=== PATIENT | male | born 1990 | race Caucasian/White ===

== ENCOUNTER 2023-08-14 12:16 | Outpatient (CLI) | payer BC, SELFPAY ==
--- NOTE | ~2023-08-14 | MR_ITS ---
EXAMINATION: MR elbow LT wo/w con DATE: 08/14/2023 14:48 INDICATION: Neurofibromatosis syndrome TECHNIQUE: Magnetic resonance imaging (MRI) of the left elbow was performed without and with 12 mL Mu ltihance intravenous contrast. Sequences included axial and sagittal T1-weighted FSE; axial, sagittal and coronal T2-weighted FS FSE; coronal PD-weighted FSE; axial T1-weighted FS FSE and post contrast axial, sagittal and coronal T1-weighted FS FSE were also obtained. COMPARISON: None. FINDINGS: 4.6 x 3.6 x 1.2 cm T1 hypointense, T2 hyperintense and enhancing subcutaneous mass at the dorsal/radi al side of the proximal forearm. The mass abuts but does not appear to transgress the superficial fas savanna of the musculature with normal appearance to the underlying musculature. Are a few significant sm aller cutaneous lesions with similar enhancement and MR signal characteristics. This includes a 6 x 6 x 3 mm cutaneous lesion centered 2 cm anterior to the radial margin of the larger mass along the rad ial side of the proximal forearm and 6 mm and 5 mm cutaneous lesions on the posterior aspect of the d istal upper arm. The bone alignment is normal with normal marrow signal throughout. No fracture or pa thologic marrow replacing process. Joint space at the left elbow appear normal with no joint effusion . The medial and lateral collateral ligament complexes are normal. The triceps, biceps brachii, brach ialis tendons in the common flexor and extensor tendon wads are all normal. IMPRESSION: 1. 4.6 x 3.6 x 1.2 cm enhancing mass at the dorsal/radial aspect of the proximal forearm with 3 addit ional subcentimeter enhancing cutaneous nodules at the distal upper arm and proximal forearm. While i maging features are nonspecific, they would be consistent with neurofibromas with the multiplicity co nsistent with provided history of neurofibromatosis. Reviewed, dictated and finalized at location A. IMPRESSION: 1. 4.6 x 3.6 x 1.2 cm enhancing mass at the dorsal/radial aspect of the proxima l forearm with 3 additional subcentimeter enhancing cutaneous nodules at the di stal upper arm and proximal forearm. While imaging features are nonspecific, th ey would be consistent with neurofibromas with the multiplicity consistent with provided history of neurofibromatosis.
--- NOTE | ~2023-08-14 | MR_ITS ---
EXAMINATION: MR lumbar spine wo/w con DATE: 08/14/2023 14:48 INDICATION: Neurofibromatosis syndrome TECHNIQUE: Magnetic resonance imaging (MRI) of the lumbar spine was performed without intravenous con trast. Sequences included sagittal T2-weighted FSE, sagittal T2-weighted FS FSE, and sagittal and axi al T1-weighted FSE. Postcontrast sequences included axial T2-weighted FSE, sagittal T1-weighted FSE, and axial and sagittal T1-weighted FS FSE. COMPARISON: None FINDINGS: 2 mm retrolisthesis L4 on L5, one-2 mm anterolisthesis L5 on S1 and 1 mm retrolisthesis L2 on L3 and L3 on L4. Vertebral body heights are normal. Normal marrow signal. Disc heights are normal. Annular fissure at L5-S1 with minimal posterior disc protrusion. Remaining discs do not extend beyond the end plate margins. No central canal stenosis. The conus medullaris terminates at L2. There is normal sign al in the caudal spinal cord with no abnormally enhancing cord lesions. Multilevel lumbar facet osteo arthritis, moderate severity bilaterally at L1-L2, and the right at L3-L4, bilaterally at L4-L5 and m ild at the remaining lumbar facet joints. This contributes to mild neural foraminal stenosis bilatera lly at L1-L2, L2-L3 and on the left at L4-L5. Mild to moderate neural foraminal stenosis bilaterally at L3-L4 and on the right at L4-L5 and L5-S1. There is a 14.0 x 14.3 x 4.2 cm subcutaneous mass posterior to the lumbosacral spine from L2 through S3. The mass is T1 isointense to skeletal muscle and T2 hyperintense with avid enhancement. There are multiple additional subcentimeter enhancing subcutaneous nodules posterior to the more cephalad lumb ar spine and surrounding paraspinal musculature as well as a 4 mm enhancing nodule in the right poste rior paraspinal musculature at the level of L3 which are similarly T1 isointense and T2 hyperintense. While the MRI imaging features are nonspecific, they would be consistent with neurofibromas with the multiplicity consistent with provided history of neurofibromatosis. No abnormally enhancing nodules seen at the neural foramina. IMPRESSION: 1. Enhancing 14 x 14 x 4 cm subcutaneous mass posterior to the lumbosacral spine with multiple additi onal subcentimeter subcutaneous nodules and a right paraspinal intramuscular nodule most likely repre senting neurofibromas in the setting of the provided history of neurofibromatosis. 2. Minimal lumbar spondylosis. Reviewed, dictated and finalized at location A. IMPRESSION: 1. Enhancing 14 x 14 x 4 cm subcutaneous mass posterior to the lumbosacral spin e with multiple additional subcentimeter subcutaneous nodules and a right catracho shaun intramuscular nodule most likely representing neurofibromas in the settin g of the provided history of neurofibromatosis. 2. Minimal lumbar spondylosis.
== END 2023-08-14 12:17 | disposition home or self-care (01) ==
PROVIDERS: PCP Nurse Practitioner Family; Visit Provider Nurse Practitioner Family
DX: Q85.00 Neurofibromatosis, unspecified (principal); M47.896 Other spondylosis, lumbar region
CPT/HCPCS: 72158; 73223; A9577